=== PATIENT | female | born 1990 | race Caucasian/White ===

== ENCOUNTER 2017-10-17 14:42 | Emergency (ER) | payer OTHER, MEDICAID ==
[~2017-10-17] VITALS: Ht 167.6 cm; Wt 66.0 kg
[2017-10-17 10:19] LABS: BASOPHILS % 0.1 % (0.0-2.0); EOSINOPHILS % 0.1 % (0.0-5.0); HEMATOCRIT. 33.5 % (36.0-48.0); HEMOGLOBIN. 11.1 g/dL (12.0-16.0); LYMPHOCYTES % 9.1 % (20.0-50.0); MEAN CORPUSCULAR HEMOGLOBIN 28.4 pg (28.0-32.0); MEAN CORPUSCULAR VOLUME 85.7 fL (81.0-99.0); MEAN PLATELET VOLUME 7.7 fl (7.4-10.4); MONOCYTES % 2.3 % (2.0-8.0); NEUTROPHILS % 88.4 % (40.0-76.0); PLATELET 375 x1000/uL (130-400); RED BLOOD CELL COUNT 3.91 mill/uL (4.2-5.4)
[2017-10-17 10:37] LABS: CLARITY URINE CLOUDY (CLEAR); COLOR URINE DARK YELLOW (YELLOW); KETONES URINE 4+ (NEGATIVE); LEUKOCYTE ESTERASE URINE TRACE (NEGATIVE); NITRITE URINE NEGATIVE (NEGATIVE); OCCULT BLOOD URINE NEGATIVE (NEGATIVE); PH URINE 8.5 (4.5-8.0); PROTEIN URINE 1+ (NEGATIVE); SPECIFIC GRAVITY URINE 1.029 (1.005-1.030)
[2017-10-17 11:00] LABS: AMYLASE 61 IU/L (25-115); CARBON DIOXIDE 23 mEq/L (21-32); CHLORIDE 104 mEq/L (98-107)
[~2017-10-17 14:42] MED LIST: LACTATED RINGERS 1,000 ML IV SCH; ONDANSETRON HCL 4MG/2ML VIAL IV PRN; POTASSIUM CHLORIDE 20MEQ/PACKET PO NR; POTASSIUM CHLORIDE INJ 20 MEQ in SODIUM CHLORIDE 0.9% 100 ML IV NR
[2017-10-17 15:08] VITALS: BP 134/96
== END 2017-10-17 16:24 | disposition left against medical advice (07) ==
LOC: EDSTATUS 14:42 → ER 14:45
DX: Z53.21 Procedure and treatment not carried out due to patient leaving prior to being seen by health care provider (principal)
CPT/HCPCS: 36415; 76705; 80053; 81001; 82150; 83690; 85025; 96360; 96361; 96365; 99281; J2405; J3480; J7120; Z7610; J7050

== ENCOUNTER 2018-02-01 07:30 | Inpatient (IN) | payer OTHER, MEDICAID ==
[~2018-02-01] VITALS: Ht 160 cm; Wt 79.4 kg
[2018-02-01] MEDS ORDERED: METHYLERGONOVINE MALEATE 0.2 MG/ML IM PRN (07:45)
[2018-02-01] MEDS ORDERED: CARBOPROST TROMETHAMINE 250 MCG/ML AMPUL IM PRN (07:45)
[2018-02-01] MEDS ORDERED: NALOXONE HCL 0.4 MG/ML 1ML VIAL IM PRN (07:45)
[2018-02-01] MEDS ORDERED: BUTORPHANOL TARTRATE 2 MG/ML VIAL IV PRN (07:45)
[2018-02-01] MEDS ORDERED: LIDOCAINE HCL 1% 20ML VIAL (Pyxis) INJ INFIL SCH (07:45)
[2018-02-01] MEDS ORDERED: ONDANSETRON HCL 4MG/2ML VIAL IV NR ×2 (07:51→12:05)
[2018-02-01] MEDS: LACTATED RINGERS 1,000 ML IV SCH ×3 (07:59→09:34)
[2018-02-01] MEDS ORDERED: BUPIVACAINE HCL/PF 0.25% (2.5MG/ML) 10ML ONE (08:07)
[2018-02-01] MEDS ORDERED: FENTANYL CITRATE/PF 50MCG/ML 5ML VIAL ONE (08:07)
[2018-02-01 08:26] LABS: BASOPHILS % 0.2 % (0.0-2.0); EOSINOPHILS % 0.4 % (0.0-5.0); HEMATOCRIT. 33.5 % (36.0-48.0); HEMOGLOBIN. 11.4 g/dL (12.0-16.0); INR 0.9; MEAN CORPUSCULAR HEMOGLOBIN 28.3 pg (28.0-32.0); MEAN CORPUSCULAR VOLUME 82.8 fL (81.0-99.0); MEAN PLATELET VOLUME 8.5 fl (7.4-10.4); MONOCYTES % 5.4 % (2.0-8.0); PARTIAL THROMBOPLASTIN TIME 26.4 sec (23.4-31.0); PLATELET 324 x1000/uL (130-400); PROTHROMBIN TIME 9.7 sec (9.4-11.6); RED BLOOD CELL COUNT 4.04 mill/uL (4.2-5.4); RED CELL DISTRIBUTION WIDTH 15.8 % (11.6-14.6)
[2018-02-01] MEDS ORDERED: BUPIVACAINE HCL/NS/PF EPIDURAL 100 ML EP ONE (08:38)
[2018-02-01] MEDS ORDERED: BUPIVACAINE HCL/NS/PF EPIDURAL 100 ML EP SCH (09:15)
[2018-02-01 10:09] LABS: HEPATITIS B SURFACE ANTIGEN NEGATIVE
[2018-02-01 11:00] LABS: RUBELLA IGG > 500.0 IU/mL (4.99-10)
[2018-02-01] MEDS: DEXT 5%/LR + PITOCIN 20UNITS/L 1,000 ML IV SCH ×2 (12:42→14:04)
[2018-02-01] MEDS ORDERED: BENZOCAINE/LANOLIN/ALOE VERA SPRAY TOP PRN (13:15)
[2018-02-01] MEDS ORDERED: DIPHENHYDRAMINE 25MG CAPSULE PO PRN (13:15)
[2018-02-01] MEDS ORDERED: LANOLIN OINT 0.25 GM TUBE TOP PRN (13:15)
[2018-02-01] MEDS ORDERED: GLYCERIN/WITCH HAZEL LEAF MEDICATED PAD TOP PRN (13:15)
[2018-02-01 13:25] LABS: CLARITY URINE CLEAR (CLEAR); COLOR URINE YELLOW (YELLOW); KETONES URINE 1+ (NEGATIVE); LEUKOCYTE ESTERASE URINE NEGATIVE (NEGATIVE); NITRITE URINE NEGATIVE (NEGATIVE); OCCULT BLOOD URINE NEGATIVE (NEGATIVE); PH URINE 7.5 (4.5-8.0); PROTEIN URINE NEGATIVE (NEGATIVE); SPECIFIC GRAVITY URINE 1.019 (1.005-1.030); UROBILINOGEN URINE 0.2 E.U./dL (0.2-1.0)
[2018-02-01 14:04] LABS: *AMPHETAMINES SCREEN URINE NEGATIVE (NEGATIVE); *BARBITURATES SCREEN URINE NEGATIVE (NEGATIVE); *BENZODIAZEPINES SCREEN URINE NEGATIVE (NEGATIVE); *COCAINE SCREEN URINE NEGATIVE (NEGATIVE)
[2018-02-01 14:06] LABS: METHADONE URINE SCREEN NEGATIVE (NEGATIVE); OPIATES URINE SCREEN NEGATIVE (NEGATIVE); PHENCYCLIDINE URINE SCREEN NEGATIVE (NEGATIVE)
[2018-02-01 14:13] LABS: CANNABINOID URINE SCREEN PRESUMTIVE POSITIVE (NEGATIVE)
[2018-02-01] MEDS: IBUPROFEN 400MG TABLET PO PRN (18:36)
[2018-02-01] MEDS: DOCUSATE SODIUM 100MG CAPSULE PO SCH (20:58)
[2018-02-02 06:09] LABS: BASOPHILS % 0.1 % (0.0-2.0); EOSINOPHILS % 0.5 % (0.0-5.0); HEMATOCRIT. 29.7 % (36.0-48.0); LYMPHOCYTES % 21.3 % (20.0-50.0); MEAN CORPUSCULAR HEMOGLOBIN 28.2 pg (28.0-32.0); MEAN CORPUSCULAR VOLUME 83.8 fL (81.0-99.0); MEAN PLATELET VOLUME 8.4 fl (7.4-10.4); MONOCYTES % 4.9 % (2.0-8.0); NEUTROPHILS % 73.2 % (40.0-76.0); PLATELET 269 x1000/uL (130-400); RED BLOOD CELL COUNT 3.54 mill/uL (4.2-5.4); RED CELL DISTRIBUTION WIDTH 15.9 % (11.6-14.6)
[2018-02-02] MEDS: IBUPROFEN 400MG TABLET PO PRN (06:11)
[2018-02-02 07:55] VITALS: BP 116/83
[2018-02-02] MEDS ORDERED: OXYCODONE HCL/ACETAMINOPHEN 5/325MG TABLET PO PRN ×2 (09:16)
[2018-02-02] MEDS: FERROUS SULFATE 325MG TABLET PO SCH ×2 (12:54→17:04)
[2018-02-02 16:04] VITALS: BP 118/79
[2018-02-02] MEDS: DOCUSATE SODIUM 100MG CAPSULE PO SCH (17:11)
== END 2018-02-02 19:20 | disposition home or self-care (01) | DRG 775 ==
LOC: OBSVTOIN 07:30 → L&D 07:30 → 7EST PP/OB 14:15
PROVIDERS: ADMIT Obstetrics & Gynecology Obstetrics; ATTEND Obstetrics & Gynecology Obstetrics
PROC: 3E0R3BZ Introduction of Anesthetic Agent into Spinal Canal, Percutaneous Approach (ICD-10-PCS; 2018-02-01)
PROC: 00HU33Z Insertion of Infusion Device into Spinal Canal, Percutaneous Approach (ICD-10-PCS; 2018-02-01)
PROC: 10E0XZZ Delivery of Products of Conception, External Approach (ICD-10-PCS; principal; 2018-02-01 12:32)
DX: O80 Encounter for full-term uncomplicated delivery (principal); Z37.0 Single live birth; Z3A.39 39 weeks gestation of pregnancy
CPT/HCPCS: 36415; 80305; 80349; 81003; 85025; 85610; 85730; 86592; 86703; 86762; 86850; 86900; 87340; J0595; J2405; J2590; J3010; J3490; J7120

== ENCOUNTER 2022-11-11 14:44 | Emergency (ER) | payer MEDICAID, OTHER ==
[~2022-11-11] VITALS: Ht 160 cm; Wt 64.0 kg
[2022-11-11 14:49] VITALS: BP 142/92
== END 2022-11-11 18:50 | disposition home or self-care (01) ==
LOC: ER 14:44
DX: Z53.21 Procedure and treatment not carried out due to patient leaving prior to being seen by health care provider (principal)